=== PATIENT | male | born 1975 | race Two or more races ===

== ENCOUNTER 2019-09-21 10:29 | Inpatient (IN) | payer MEDICAID ==
[~2019-09-21] VITALS: Ht 172.7 cm; Wt 82.1 kg
[2019-09-21 14:36] VITALS: BP 129/94
[2019-09-21] MEDS ORDERED: RISP3 PO (14:42)
[2019-09-21] MEDS ORDERED: LORazepam 2 MG TABLET PO PRN (15:15)
[2019-09-21] MEDS ORDERED: HALOPERIDOL 5 MG TABLET PO PRN (15:15)
[2019-09-21] MEDS ORDERED: RISP2 PO (15:26)
[2019-09-21] MEDS ORDERED: INFLUENZA VIRUS VACCINE QVS 2019-20 (3YR+)/PF 60 MCG/0.5 ML SYRINGE IM ONE (15:45)
[2019-09-21 16:20] VITALS: BP 149/87
[2019-09-21] MEDS ORDERED: DOCUSATE SODIUM 100 MG CAPSULE PO PRN (16:45)
[2019-09-21] MEDS ORDERED: ONDANSETRON HCL 4 MG TABLET PO PRN (16:45)
[2019-09-21] MEDS ORDERED: MAGNESIUM HYDROXIDE SUSPENSION 30 ML UDCUP PO PRN (16:45)
[2019-09-21] MEDS ORDERED: PETROLATUM,WHITE 28 GM JELLY TP PRN (16:45)
[2019-09-21] MEDS ORDERED: IBUPROFEN 400 MG TABLET PO PRN (16:45)
[2019-09-21] MEDS ORDERED: GuaiFENesin/D-METHORPHAN [SUGAR-FREE] 200-20MG/10 ML SYRUP UDCUP PO PRN (16:45)
[2019-09-21] MEDS ORDERED: MAG HYDROX/AL HYDROX/SIMETH ES 30 ML SUSPENSION UDCUP PO PRN (16:45)
[2019-09-21] MEDS ORDERED: ACETAMINOPHEN 325 MG TABLET PO PRN (16:45)
[2019-09-21] MEDS ORDERED: ALBUTEROL SULFATE HFA 90 MCG/PUFF 8 GM INHALER IH PRN (16:45)
[2019-09-21] MEDS ORDERED: CloNIDine HCL 0.1 MG TABLET PO PRN (16:45)
[2019-09-21] MEDS ORDERED: LOPERAMIDE HCL 2 MG CAPSULE PO PRN (16:45)
[2019-09-21] MEDS: ZOLPIDEM TARTRATE 10 MG TABLET PO PRN (20:51)
[2019-09-22 04:44] VITALS: BP 134/84
[2019-09-22 08:07] VITALS: BP 128/87
[2019-09-22] MEDS ORDERED: NICOTINE 14 MG/24 HOUR PATCH TD PRN (15:00)
[2019-09-22 16:09] VITALS: BP 119/83
[2019-09-22] MEDS: NICOTINE 14 MG/24 HOUR PATCH TD PRN (20:13)
[2019-09-22] MEDS: RisperiDONE 1 MG TABLET PO SCH (20:14)
[2019-09-22] MEDS: RisperiDONE 4 MG TABLET PO SCH (20:14)
[2019-09-22] MEDS: ZOLPIDEM TARTRATE 10 MG TABLET PO PRN (20:14)
[2019-09-22] MEDS ORDERED: RisperiDONE 2 MG TABLET PO SCH (21:00)
[2019-09-23 00:10] VITALS: BP 106/63
[2019-09-23 08:35] VITALS: BP 122/79
[2019-09-23 17:05] VITALS: BP 130/81
[2019-09-23] MEDS: NICOTINE 14 MG/24 HOUR PATCH TD PRN (20:47)
[2019-09-23] MEDS: RisperiDONE 1 MG TABLET PO SCH (20:47)
[2019-09-23] MEDS: ZOLPIDEM TARTRATE 10 MG TABLET PO PRN (20:47)
[2019-09-23] MEDS: RisperiDONE 4 MG TABLET PO SCH (20:47)
[2019-09-24 03:18] VITALS: BP 118/74
[2019-09-24 08:30] VITALS: BP 132/81
[2019-09-24] MEDS: NICOTINE 14 MG/24 HOUR PATCH TD PRN (13:42)
[2019-09-24 16:11] VITALS: BP 146/98
[2019-09-24] MEDS: RisperiDONE 1 MG TABLET PO SCH (20:25)
[2019-09-24] MEDS: RisperiDONE 4 MG TABLET PO SCH (20:25)
[2019-09-25 07:13] VITALS: BP 130/86
[2019-09-25 08:14] VITALS: BP 129/64
[2019-09-25] MEDS: NICOTINE 14 MG/24 HOUR PATCH TD PRN (12:20)
[2019-09-25 16:08] VITALS: BP 138/68
[2019-09-25] MEDS: RisperiDONE 4 MG TABLET PO SCH (20:45)
[2019-09-25] MEDS: RisperiDONE 1 MG TABLET PO SCH (20:45)
[2019-09-26 05:11] VITALS: BP 122/84
[2019-09-26 08:29] VITALS: BP 129/78
[2019-09-26] MEDS: NICOTINE 14 MG/24 HOUR PATCH TD PRN (10:22)
[2019-09-26 16:00] VITALS: BP 125/77
[2019-09-26] MEDS: RisperiDONE 1 MG TABLET PO SCH (20:18)
[2019-09-26] MEDS: RisperiDONE 4 MG TABLET PO SCH (20:18)
[2019-09-27 05:44] VITALS: BP 129/71
[2019-09-27 08:00] VITALS: BP 139/80
[2019-09-27] MEDS: NICOTINE 14 MG/24 HOUR PATCH TD PRN (14:20)
[2019-09-27 16:12] VITALS: BP 143/83
[2019-09-27] MEDS: RisperiDONE 1 MG TABLET PO SCH (20:10)
[2019-09-27] MEDS: RisperiDONE 4 MG TABLET PO SCH (20:10)
[2019-09-28 05:36] VITALS: BP 113/76
[2019-09-28 08:10] VITALS: BP 123/80
[2019-09-28 16:35] VITALS: BP 118/65
[2019-09-28] MEDS: RisperiDONE 1 MG TABLET PO SCH (20:08)
[2019-09-28] MEDS: RisperiDONE 4 MG TABLET PO SCH (20:08)
[2019-09-29 00:24] VITALS: BP 117/72
[2019-09-29] MEDS: NICOTINE 14 MG/24 HOUR PATCH TD PRN (05:43)
[2019-09-29 08:43] VITALS: BP 120/69
[2019-09-29 16:09] VITALS: BP 130/87
[2019-09-29] MEDS: RisperiDONE 4 MG TABLET PO SCH (20:42)
[2019-09-29] MEDS: RisperiDONE 1 MG TABLET PO SCH (20:42)
[2019-09-30 04:06] VITALS: BP 119/76
[2019-09-30] MEDS: NICOTINE 14 MG/24 HOUR PATCH TD PRN (14:00)
[2019-09-30 16:00] VITALS: BP 119/64
[2019-09-30] MEDS: RisperiDONE 4 MG TABLET PO SCH (21:00)
[2019-09-30] MEDS: RisperiDONE 1 MG TABLET PO SCH (21:00)
[2019-10-01 04:27] VITALS: BP 116/70
[2019-10-01 08:44] VITALS: BP 130/85
== END 2019-10-01 13:25 | disposition home or self-care (01) | DRG 750 ==
LOC: B3A 15:28 → B2S 09-28 14:15
DX: F20.0 Paranoid schizophrenia (principal); F17.210 Nicotine dependence, cigarettes, uncomplicated; N18.9 Chronic kidney disease, unspecified; Z79.899 Other long term (current) drug therapy; Z82.0 Family history of epilepsy and other diseases of the nervous system; Z91.040 Latex allergy status
CPT/HCPCS: 87081